=== PATIENT | female | born 2000 | race Caucasian/White ===

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

== ENCOUNTER 2019-02-14 20:11 | Emergency (ER) | payer BC, OTHER ==
[~2019-02-14] VITALS: Ht 154.9 cm; Wt 81.7 kg
[2019-02-14] MEDS ORDERED: NORETHIND-ETH1 EACH PO (20:26)
[2019-02-14 22:08] LABS: Influenza A Negative (NEGATIVE); Influenza B Negative (NEGATIVE)
[2019-02-14] MEDS ORDERED: MUCUS ER1200 MG PO (22:55)
[2019-02-14] MEDS ORDERED: Chlor-Trimeton4 MG PO (22:55)
== END 2019-02-14 23:03 | disposition home or self-care (01) ==
LOC: ER 20:11
PROVIDERS: Physician Assistant
DX: R05 Cough (principal); Z88.0 Allergy status to penicillin
CPT/HCPCS: 71046; 87804; 99283-25

== ENCOUNTER → 2020-01-11 | Outpatient (CLI) | payer BC, OTHER ==
[~2020-01-11] MED LIST: CEPH500 PO; Chlor-Trimeton4 MG PO; EFFEXOR XR37.5 MG PO; IBUP800 PO; MUCUS ER1200 MG PO; NORETHIND-ETH1 EACH PO; Zofran4 MG PO
== END | disposition home or self-care (01) ==
LOC: LAB SHORT 08:40 → PLD 08:40
DX: D22.5 Melanocytic nevi of trunk (principal); D22.72 Melanocytic nevi of left lower limb, including hip
CPT/HCPCS: 88305

== ENCOUNTER 2020-01-13 08:49 | Emergency (ER) | payer BC, OTHER ==
[~2020-01-13] VITALS: Ht 154.9 cm; Wt 96.6 kg
[~2020-01-13 08:49] MED LIST changes: -CEPH500 PO; -EFFEXOR XR37.5 MG PO; -IBUP800 PO; -Zofran4 MG PO
[2020-01-13] MEDS ORDERED: EFFEXOR XR37.5 MG PO (09:07)
[2020-01-13] MEDS ORDERED: CEPH500 PO (09:57)
[2020-01-13] MEDS ORDERED: IBUP800 PO (10:00)
[2020-01-13] MEDS ORDERED: Zofran4 MG PO (10:12)
== END 2020-01-13 10:20 | disposition home or self-care (01) ==
LOC: ER 08:49
DX: L05.01 Pilonidal cyst with abscess (principal)
CPT/HCPCS: 10081; 87070; 87075; 87076; 87185; 87205; 99283-25

== ENCOUNTER 2020-02-05 03:10 | Emergency (ER) | payer BC, OTHER ==
[~2020-02-05] VITALS: Ht 154.9 cm; Wt 95.7 kg
[~2020-02-05 03:10] MED LIST changes: +CEPH500 PO; +EFFEXOR XR37.5 MG PO; +IBUP800 PO; +Zofran4 MG PO
[2020-02-05] MEDS ORDERED: Cleocin HCl300 MG PO (03:40)
[2020-02-05] MEDS ORDERED: ONDA4ODT MM (03:50)
== END 2020-02-05 04:10 | disposition home or self-care (01) ==
LOC: ER 03:10
DX: L03.317 Cellulitis of buttock (principal); Z88.0 Allergy status to penicillin; Z79.899 Other long term (current) drug therapy
CPT/HCPCS: 99283

== ENCOUNTER 2020-07-06 08:11 | Day surgery (SDC) | payer BC, OTHER ==
[~2020-07-06] VITALS: Ht 154.9 cm; Wt 101.4 kg
[~2020-07-06 08:11] MED LIST changes: +ALBU90OI INH; +Cleocin HCl300 MG PO; +DEPO-PROVE150 MG/1 M IM; +ONDA4 PO; +ONDA4ODT MM; +OXYB5 PO; +VITAMIN D310 MC4 PO
--- NOTE | 2020-07-06 12:18 | NUR ---
RECIEVED PATIENT FROM PACU VSS PATIENT TALKATIVE WITH RN. VSS
--- NOTE | 2020-07-06 13:43 | NUR ---
Patient up to Ambulate independently. Gait steady. Discharge instructions reviewed with patient. Patient verbalizes understanding. Copy given to patient to take home. MOTHER BROUGHT INTO DAY SURGERY AND INVOLVED IN IN DISCHARGE, INSTRUCTED ON [place] DRAIN. WRITTEN INSTRUCTIONS GIVEN. Discharged via wheelchair to private car for ride home WITH MOTHER
== END 2020-07-06 22:37 | disposition home or self-care (01) ==
LOC: ORSCMMR 08:11 → ORD 08:30 → ORSCMMR 08:30
DX: L05.01 Pilonidal cyst with abscess (principal); R62.50 Unspecified lack of expected normal physiological development in childhood; F32.9 Major depressive disorder, single episode, unspecified; J45.909 Unspecified asthma, uncomplicated; E66.01 Morbid (severe) obesity due to excess calories; Z68.54 Body mass index [BMI] pediatric, 95th percentile for age to less than 120% of the 95th percentile for age; Z79.899 Other long term (current) drug therapy
CPT/HCPCS: 84703; 88305; A9270; J0690; J1100; J1885; J2270; J2405; J2550; J2704; J3010; J7120

== ENCOUNTER 2020-07-15 20:45 | Emergency (ER) | payer BC, OTHER ==
[~2020-07-15] VITALS: Ht 154.9 cm; Wt 99.8 kg
== END 2020-07-16 02:47 | disposition home or self-care (01) ==
LOC: ER 20:45
DX: T81.31XA Disruption of external operation (surgical) wound, not elsewhere classified, initial encounter (principal); Z88.0 Allergy status to penicillin; Z91.09 Other allergy status, other than to drugs and biological substances
CPT/HCPCS: 99282-25

== ENCOUNTER 2020-07-23 00:17 | Day surgery (SDC) | payer BC, OTHER | END 2020-07-23 23:23 | disposition home or self-care (01) | LOC: WOUND 00:17 | DX: T81.31XA Disruption of external operation (surgical) wound, not elsewhere classified, initial encounter (principal) | CPT/HCPCS: A9270; G0463 ==

== ENCOUNTER 2020-08-01 04:32 | Day surgery (SDC) | payer BC, OTHER | END 2020-08-01 23:08 | disposition home or self-care (01) | LOC: WOUND 04:32 | DX: T81.30XD Disruption of wound, unspecified, subsequent encounter (principal); X58.XXXD Exposure to other specified factors, subsequent encounter | CPT/HCPCS: A9270 ==

== ENCOUNTER 2020-08-08 02:51 | Day surgery (SDC) | payer BC, OTHER | END 2020-08-08 23:39 | disposition home or self-care (01) | LOC: WOUND 02:51 | DX: T81.31XA Disruption of external operation (surgical) wound, not elsewhere classified, initial encounter (principal); Z88.0 Allergy status to penicillin | CPT/HCPCS: A9270 ==

== ENCOUNTER 2020-08-15 01:21 | Day surgery (SDC) | payer BC, OTHER | END 2020-08-15 23:52 | disposition home or self-care (01) | LOC: WOUND 01:21 | DX: T81.30XD Disruption of wound, unspecified, subsequent encounter (principal); Z88.0 Allergy status to penicillin | CPT/HCPCS: A9270 ==

== ENCOUNTER 2020-08-29 02:13 | Day surgery (SDC) | payer BC, OTHER | END 2020-08-29 23:33 | disposition home or self-care (01) | LOC: WOUND 02:13 | DX: T81.31XA Disruption of external operation (surgical) wound, not elsewhere classified, initial encounter (principal); Z88.0 Allergy status to penicillin | CPT/HCPCS: A9270 ==

== ENCOUNTER 2020-09-12 01:33 | Day surgery (SDC) | payer BC, OTHER | END 2020-09-12 23:15 | disposition home or self-care (01) | LOC: WOUND 01:33 | DX: T81.31XD Disruption of external operation (surgical) wound, not elsewhere classified, subsequent encounter (principal) | CPT/HCPCS: A9270; G0463 ==

== ENCOUNTER 2020-10-03 00:35 | Day surgery (SDC) | payer BC, OTHER | END 2020-10-03 23:23 | disposition home or self-care (01) | LOC: WOUND 00:35 | DX: T81.30XD Disruption of wound, unspecified, subsequent encounter (principal) | CPT/HCPCS: G0463 ==

== ENCOUNTER 2020-10-17 02:29 | Day surgery (SDC) | payer BC, OTHER | END 2020-10-17 23:52 | disposition home or self-care (01) | LOC: WOUND 02:29 | DX: T81.31XD Disruption of external operation (surgical) wound, not elsewhere classified, subsequent encounter (principal); Z88.0 Allergy status to penicillin | CPT/HCPCS: G0463 ==

== ENCOUNTER 2020-11-20 01:34 | Day surgery (SDC) | payer BC, OTHER | END 2020-11-20 23:05 | disposition home or self-care (01) | LOC: WOUND 01:34 | DX: T81.30XD Disruption of wound, unspecified, subsequent encounter (principal); Z88.0 Allergy status to penicillin | CPT/HCPCS: G0463 ==

== ENCOUNTER → 2021-01-06 | Outpatient (CLI) | payer BC, OTHER ==
[2021-01-06 14:40] LABS: BASOPHILS ABSOLUTE AUTO 0.05 K/mm3 (0.00-0.23); BASOPHILS PERCENT AUTO 1 % (0-2); EOSINOPHILS ABSOLUTE AUTO 0.07 K/mm3 (0.00-0.68); EOSINOPHILS PERCENT AUTO 1 % (0-6); Hematocrit 42.3 % (33.0-51.0); Hemoglobin 13.6 g/dL (11.5-16.0); IMMATURE GRAN ABSOLUTE AUTO 0.03 K/mm3 (0.00-0.10); IMMATURE GRAN PERCENT AUTO 0 % (0-1); LYMPHOCYTES PERCENT AUTO 27 % (21-46); MONOCYTES ABSOLUTE AUTO 0.64 K/mm3 (0.16-1.47); MONOCYTES PERCENT AUTO 6 % (4-13); Mean Corpuscular HGB 25.7 pg (26.0-34.0); Mean Corpuscular HGB Conc 32.2 g/dL (31.5-36.5); Mean Corpuscular Volume 80 fL (80-100); Mean Platelet Volume 10.1 fL (9.1-12.4); NEUTROPHILS ABSOLUTE AUTO 6.99 K/mm3 (1.96-9.15); NEUTROPHILS PERCENT AUTO 66 % (41-73); Platelet Count 370 K/mm3 (150-400); RDW Coefficient Variation 15.8 % (11.7-14.2); RDW Standard Deviation 45.2 fL (35.1-46.3); Red Blood Cell Count 5.29 M/mm3 (3.80-5.20); White Blood Cell Count 10.58 K/mm3 (4.00-11.30)
[2021-01-06 14:50] LABS: Alanine Aminotransfer (ALT/SGP 17 U/L (12-78); Albumin, Blood 4.2 g/dL (3.4-5.0); Albumin/Globulin Ratio 1.1 (0.8-1.8); Alk Phos 145 U/L (40-126); Amylase, Blood 29 U/L (25-115); Anion Gap 15 mmol/L (6-16); Aspartate Aminotrans (AST/SGOT 13 U/L (12-37); Bilirubin, Total 0.3 mg/dL (0.1-1.0); Blood Urea Nitrogen 10 mg/dL (8-24); CO2, Blood 24 mmol/L (21-32); Calcium, Blood 9.4 mg/dL (8.5-10.1); Chloride, Blood 101 mmol/L (98-108); Creatinine, Blood 0.83 mg/dL (0.40-1.00); Globulin, Blood 3.7 g/dL (2.2-4.0); Glomerular Filtration Rate >60 (60-); Glucose, Blood 83 mg/dL (70-99); Potassium, Blood 3.5 mmol/L (3.5-5.5); Sodium, Blood 140 mmol/L (136-145); Total Protein, Blood 7.9 g/dL (6.4-8.2)
== END | disposition home or self-care (01) ==
LOC: LAB SHORT 14:31 → LAB 14:31
PROVIDERS: Physician Assistant Surgical
DX: R10.11 Right upper quadrant pain (principal)
CPT/HCPCS: 80053; 82150; 83690; 85025

== ENCOUNTER 2021-01-28 21:56 | Emergency (ER) | payer BC, OTHER ==
[~2021-01-28] VITALS: Ht 154.9 cm; Wt 95.7 kg
[2021-01-28] MEDS ORDERED: OMEP20ER PO (22:47)
[2021-01-28] MEDS ORDERED: DULCOLAX400 MG/5 M PO (22:48)
== END 2021-01-28 23:41 | disposition home or self-care (01) ==
LOC: ER 21:56
DX: R13.10 Dysphagia, unspecified (principal); R07.0 Pain in throat; Z88.1 Allergy status to other antibiotic agents; Z91.048 Other nonmedicinal substance allergy status; Z88.8 Allergy status to other drugs, medicaments and biological substances
CPT/HCPCS: 99283

== ENCOUNTER 2021-05-10 22:35 | Emergency (ER) | payer BC, OTHER ==
[~2021-05-10] VITALS: Ht 154.9 cm; Wt 77.1 kg
[~2021-05-10 22:35] MED LIST changes: +DULCOLAX400 MG/5 M PO; +OMEP20ER PO
[2021-05-10 23:49] LABS: BASOPHILS ABSOLUTE AUTO 0.04 K/mm3 (0.00-0.23); BASOPHILS PERCENT AUTO 0 % (0-2); EOSINOPHILS ABSOLUTE AUTO 0.08 K/mm3 (0.00-0.68); EOSINOPHILS PERCENT AUTO 1 % (0-6); Hematocrit 39.9 % (33.0-51.0); Hemoglobin 12.8 g/dL (11.5-16.0); IMMATURE GRAN ABSOLUTE AUTO 0.02 K/mm3 (0.00-0.10); IMMATURE GRAN PERCENT AUTO 0 % (0-1); LYMPHOCYTES ABSOLUTE AUTO 2.61 K/mm3 (0.84-5.20); LYMPHOCYTES PERCENT AUTO 26 % (21-46); MONOCYTES PERCENT AUTO 8 % (4-13); Mean Corpuscular HGB 27.4 pg (26.0-34.0); Mean Corpuscular HGB Conc 32.1 g/dL (31.5-36.5); Mean Corpuscular Volume 85 fL (80-100); NEUTROPHILS ABSOLUTE AUTO 6.48 K/mm3 (1.96-9.15); NEUTROPHILS PERCENT AUTO 65 % (41-73); Platelet Count 293 K/mm3 (150-400); RDW Coefficient Variation 15.4 % (11.7-14.2); RDW Standard Deviation 48.6 fL (35.1-46.3); Red Blood Cell Count 4.68 M/mm3 (3.80-5.20); White Blood Cell Count 10.03 K/mm3 (4.00-11.30)
[2021-05-11 00:08] LABS: Alanine Aminotransfer (ALT/SGP 9 U/L (12-78); Albumin, Blood 3.8 g/dL (3.4-5.0); Albumin/Globulin Ratio 1.1 (0.8-1.8); Alk Phos 109 U/L (50-136); Anion Gap 11 mmol/L (6-16); Aspartate Aminotrans (AST/SGOT 9 U/L (12-37); Bilirubin, Total 0.5 mg/dL (0.1-1.0); Blood Urea Nitrogen 10 mg/dL (8-24); Bun/Creatinine Ratio 12.8 (12.0-20.0); CO2, Blood 24 mmol/L (21-32); Calcium, Blood 9.4 mg/dL (8.5-10.1); Chloride, Blood 106 mmol/L (98-108); Creatinine, Blood 0.78 mg/dL (0.40-1.00); Globulin, Blood 3.6 g/dL (2.2-4.0); Glomerular Filtration Rate >60 (60-); Glucose, Blood 77 mg/dL (70-99); Potassium, Blood 3.4 mmol/L (3.5-5.5); Sodium, Blood 141 mmol/L (136-145); Total Protein, Blood 7.4 g/dL (6.4-8.2)
== END 2021-05-11 00:51 | disposition home or self-care (01) ==
LOC: ER 22:35
PROVIDERS: Physician Assistant
DX: R10.11 Right upper quadrant pain (principal); R11.2 Nausea with vomiting, unspecified; Z91.048 Other nonmedicinal substance allergy status; Z88.1 Allergy status to other antibiotic agents; Z88.8 Allergy status to other drugs, medicaments and biological substances; Z79.899 Other long term (current) drug therapy
CPT/HCPCS: 36415; 76705; 80053; 83690; 85025; 99284-25; A9270; J1885; J2405; J7030

== ENCOUNTER 2021-05-22 11:49 | Emergency (ER) | payer BC, OTHER ==
[~2021-05-22] VITALS: Ht 154.9 cm; Wt 72.1 kg
[2021-05-22 13:19] LABS: BASOPHILS ABSOLUTE AUTO 0.05 K/mm3 (0.00-0.23); BASOPHILS PERCENT AUTO 1 % (0-2); EOSINOPHILS ABSOLUTE AUTO 0.02 K/mm3 (0.00-0.68); EOSINOPHILS PERCENT AUTO 0 % (0-6); Hematocrit 46.2 % (33.0-51.0); Hemoglobin 15.7 g/dL (11.5-16.0); IMMATURE GRAN ABSOLUTE AUTO 0.02 K/mm3 (0.00-0.10); IMMATURE GRAN PERCENT AUTO 0 % (0-1); LYMPHOCYTES PERCENT AUTO 16 % (21-46); MONOCYTES ABSOLUTE AUTO 0.77 K/mm3 (0.16-1.47); MONOCYTES PERCENT AUTO 9 % (4-13); Mean Corpuscular HGB 27.8 pg (26.0-34.0); Mean Corpuscular Volume 82 fL (80-100); Mean Platelet Volume 12.7 fL (9.1-12.4); NEUTROPHILS ABSOLUTE AUTO 6.62 K/mm3 (1.96-9.15); NEUTROPHILS PERCENT AUTO 75 % (41-73); Platelet Count 279 K/mm3 (150-400); RDW Coefficient Variation 14.6 % (11.7-14.2); RDW Standard Deviation 43.8 fL (35.1-46.3); Red Blood Cell Count 5.65 M/mm3 (3.80-5.20); White Blood Cell Count 8.88 K/mm3 (4.00-11.30)
[2021-05-22 13:35] LABS: Source, Urine Clean Catch
[2021-05-22 13:44] LABS: Appearance, Urine Turbid (Clear); Blood, Urine 1+ (Neg); Color, Urine Amber (P-Yellow); Glucose Qualitative, Urine Neg (Neg); Ketones, Urine 3+ (Neg); Leukocyte Esterase, Urine Neg (Neg); Nitrite, Urine Neg (Neg); Protein, Urine 2+ (Neg); Urobilinogen, Urine 1+ (Normal)
[2021-05-22 13:45] LABS: Alanine Aminotransfer (ALT/SGP 14 U/L (12-78); Albumin, Blood 4.2 g/dL (3.4-5.0); Alk Phos 101 U/L (50-136); Anion Gap 11 mmol/L (6-16); Aspartate Aminotrans (AST/SGOT 20 U/L (12-37); Bilirubin, Total 0.7 mg/dL (0.1-1.0); Blood Urea Nitrogen 8 mg/dL (8-24); Bun/Creatinine Ratio 10.7 (12.0-20.0); CO2, Blood 24 mmol/L (21-32); Calcium, Blood 9.8 mg/dL (8.5-10.1); Chloride, Blood 100 mmol/L (98-108); Creatinine, Blood 0.75 mg/dL (0.40-1.00); Globulin, Blood 4.3 g/dL (2.2-4.0); Glomerular Filtration Rate >60 (60-); Glucose, Blood 100 mg/dL (70-99); Potassium, Blood 3.3 mmol/L (3.5-5.5); Sodium, Blood 135 mmol/L (136-145); Total Protein, Blood 8.5 g/dL (6.4-8.2)
[2021-05-22 13:52] LABS: Bilirubin, Urine 1+ (Neg)
[2021-05-22 14:08] LABS: Other Crystals Many /hpf
[2021-05-22 14:10] LABS: Bacteria Not Seen /hpf; Mucus Heavy (0-Heavy); Red Blood Cells, Urine Not Seen /hpf (0-2); Squamous Epithelial Cells Rare /hpf (Few); Transitional Epithelial Cells Rare /hpf (0-Rare); White Blood Cells, Urine Not Seen /hpf (0-5)
[2021-05-22 14:11] LABS: Hyaline Casts 0-2 /lpf (0-2)
[2021-05-22] MEDS ORDERED: PROM12.5S PR (17:30)
== END 2021-05-22 18:45 | disposition home or self-care (01) ==
LOC: ER 11:49
PROVIDERS: Physician Assistant
DX: K80.20 Calculus of gallbladder without cholecystitis without obstruction (principal); E86.0 Dehydration; Z88.0 Allergy status to penicillin; Z88.8 Allergy status to other drugs, medicaments and biological substances; Z91.048 Other nonmedicinal substance allergy status; Z79.899 Other long term (current) drug therapy
CPT/HCPCS: 36415; 80053; 81001; 81025; 83690; 85025; 96374; 99283-25; J2405; J7030

== ENCOUNTER 2022-02-25 16:14 | Observation (INO) | payer BC, OTHER ==
[~2022-02-25] VITALS: Ht 154.9 cm; Wt 93.4 kg
[~2022-02-25 16:14] MED LIST changes: +PROM12.5S PR
[2022-02-25 17:00] LABS: Source, Urine Clean Catch
[2022-02-25 17:14] LABS: Bilirubin, Urine Neg (Neg); Blood, Urine 2+ (Neg); Glucose Qualitative, Urine Neg (Neg); Ketones, Urine Neg (Neg); Leukocyte Esterase, Urine Neg (Neg); Nitrite, Urine Neg (Neg); Protein, Urine Neg (Neg); Specific Gravity, Urine 1.015 (1.003-1.022); Urobilinogen, Urine NORM (Normal); pH, Urine 6.5 (5.0-8.0)
[2022-02-25 17:15] LABS: BASOPHILS ABSOLUTE AUTO 0.08 K/mm3 (0.00-0.23); BASOPHILS PERCENT AUTO 1 % (0-2); EOSINOPHILS PERCENT AUTO 2 % (0-6); Hematocrit 45.7 % (33.0-51.0); Hemoglobin 14.8 g/dL (11.5-16.0); IMMATURE GRAN ABSOLUTE AUTO 0.04 K/mm3 (0.00-0.10); IMMATURE GRAN PERCENT AUTO 0 % (0-1); LYMPHOCYTES ABSOLUTE AUTO 3.18 K/mm3 (0.84-5.20); LYMPHOCYTES PERCENT AUTO 27 % (21-46); MONOCYTES ABSOLUTE AUTO 0.81 K/mm3 (0.16-1.47); MONOCYTES PERCENT AUTO 7 % (4-13); Mean Corpuscular HGB 27.5 pg (26.0-34.0); Mean Corpuscular HGB Conc 32.4 g/dL (31.5-36.5); Mean Corpuscular Volume 85 fL (80-100); Mean Platelet Volume 9.7 fL (9.1-12.4); NEUTROPHILS ABSOLUTE AUTO 7.45 K/mm3 (1.96-9.15); NEUTROPHILS PERCENT AUTO 63 % (41-73); Platelet Count 378 K/mm3 (150-400); RDW Coefficient Variation 14.1 % (11.7-14.2); RDW Standard Deviation 43.6 fL (35.1-46.3); Red Blood Cell Count 5.39 M/mm3 (3.80-5.20); White Blood Cell Count 11.76 K/mm3 (4.00-11.30)
[2022-02-25 17:28] LABS: Appearance, Urine Hazy (Clear); Color, Urine Yellow (P-Yellow)
[2022-02-25 17:29] LABS: Bacteria Many /hpf; Mucus Light (0-Heavy); Squamous Epithelial Cells Mod /hpf (Few)
[2022-02-25 17:35] LABS: U Amphetamine Screen Not Detected; U Barbituate Screen Not Detected; U Benzodiazapine Screen DETECTED; U Buprenorphine Screen Not Detected; U Cannabinoids Screen Not Detected; U Cocaine Screen Not Detected; U Methadone Screen Not Detected; U Methamphetamine Screen Not Detected; U Opiates Screen Not Detected; U Oxycodone Screen Not Detected; U Phencyclidine Screen Not Detected; U Propoxyphene Screen Not Detected
[2022-02-25 17:38] LABS: Ethanol (Alcohol), Blood, Med <3 mg/dL; Salicylate <1.7 mg/dL (2.8-20.0); Thyroxine (T4) 8.5 ug/dL (4.8-13.9)
[2022-02-25 17:43] LABS: Influenza A, PCR NEGATIVE (NEGATIVE); Influenza B, PCR NEGATIVE (NEGATIVE); Resp Syncytial Virus, PCR NEGATIVE (NEGATIVE); SARS-Cov-2 (COVID-19) PCR, MMC NEGATIVE (NEGATIVE)
[2022-02-25 17:55] LABS: Acetaminophen, Random <2.0 ug/mL (10.0-30.0); Alanine Aminotransfer (ALT/SGP 17 U/L (12-78); Albumin, Blood 3.8 g/dL (3.4-5.0); Albumin/Globulin Ratio 0.9 (0.8-1.8); Alk Phos 145 U/L (50-136); Anion Gap 7 mmol/L (6-16); Aspartate Aminotrans (AST/SGOT 16 U/L (12-37); Bilirubin, Total 0.2 mg/dL (0.1-1.0); Blood Urea Nitrogen 9 mg/dL (8-24); Bun/Creatinine Ratio 14.2 (12.0-20.0); CO2, Blood 28 mmol/L (21-32); Calcium, Blood 9.3 mg/dL (8.5-10.1); Chloride, Blood 105 mmol/L (98-108); Creatinine, Blood 0.63 mg/dL (0.40-1.00); Globulin, Blood 4.4 g/dL (2.2-4.0); Glomerular Filtration Rate 129 (60-); Glucose, Blood 107 mg/dL (70-99); Potassium, Blood 3.3 mmol/L (3.5-5.5); Sodium, Blood 140 mmol/L (136-145); Total Protein, Blood 8.2 g/dL (6.4-8.2)
[2022-02-25] MEDS ORDERED: FAMO20 PO (21:02)
== END 2022-02-27 12:00 ==
LOC: ER 16:14 → EOR 16:15
PROVIDERS: Student in an Organized Health Care Education/Training Program; ADMIT Emergency Medicine
DX: F33.3 Major depressive disorder, recurrent, severe with psychotic symptoms (principal); Z20.822 Contact with and (suspected) exposure to COVID-19; Z72.0 Tobacco use
CPT/HCPCS: 0241U; 80053; 81001; 81025; 84436; 84443; 85025; 86592; 87077; 87086; 87186; 99285; A9270; G0378; G0480; Q3014

== ENCOUNTER → 2022-03-19 | Outpatient (CLI) | payer BC, OTHER ==
[~2022-03-19] MED LIST changes: +FAMO20 PO
[2022-03-25 12:10] LABS: HPV APTIMA Negative (Negative)
== END | disposition home or self-care (01) ==
LOC: LAB 15:45 → LAB SHORT 15:45
PROVIDERS: Obstetrics & Gynecology
DX: Z12.4 Encounter for screening for malignant neoplasm of cervix (principal)
CPT/HCPCS: G0145

== ENCOUNTER → 2022-04-01 | Outpatient (CLI) | payer BC, OTHER | LOC: LAB 15:10 → LAB SHORT 15:10 | DX: L08.0 Pyoderma (principal); L98.9 Disorder of the skin and subcutaneous tissue, unspecified | CPT/HCPCS: 87070; 87205 ==

== ENCOUNTER 2022-04-25 09:52 | Emergency (ER) | payer BC, OTHER ==
[~2022-04-25] VITALS: Ht 154.9 cm; Wt 99.8 kg
[2022-04-25] MEDS ORDERED: CEFD300 PO (10:05)
== END 2022-04-25 10:05 | disposition home or self-care (01) ==
LOC: ER 09:52
DX: H66.91 Otitis media, unspecified, right ear (principal); Z88.0 Allergy status to penicillin; Z88.8 Allergy status to other drugs, medicaments and biological substances; Z91.09 Other allergy status, other than to drugs and biological substances; Z79.899 Other long term (current) drug therapy
CPT/HCPCS: 99282

== ENCOUNTER 2022-05-30 14:39 | Emergency (ER) | payer BC, OTHER ==
[~2022-05-30] VITALS: Ht 175.3 cm; Wt 65.8 kg
[~2022-05-30 14:39] MED LIST changes: +CEFD300 PO
[2022-05-30 17:22] VITALS: BP 109/44
[2022-05-30] MEDS ORDERED: ZOLOFT50 MG PO (17:24)
[2022-05-30] MEDS ORDERED: Hydroxyzine HCl25 MG PO (18:05)
== END 2022-05-30 18:32 | disposition home or self-care (01) ==
LOC: ER 14:39
DX: R41.82 Altered mental status, unspecified (principal); F41.9 Anxiety disorder, unspecified; Z91.048 Other nonmedicinal substance allergy status; Z88.8 Allergy status to other drugs, medicaments and biological substances; Z88.1 Allergy status to other antibiotic agents
CPT/HCPCS: 99283

== ENCOUNTER 2022-09-27 22:23 | Emergency (ER) | payer BC, OTHER ==
[~2022-09-27] VITALS: Ht 154.9 cm; Wt 54.4 kg
[~2022-09-27 22:23] MED LIST changes: +Hydroxyzine HCl25 MG PO; +ZOLOFT50 MG PO
[2022-09-27 23:41] LABS: BASOPHILS ABSOLUTE AUTO 0.05 K/mm3 (0.00-0.23); BASOPHILS PERCENT AUTO 1 % (0-2); EOSINOPHILS ABSOLUTE AUTO 0.22 K/mm3 (0.00-0.68); EOSINOPHILS PERCENT AUTO 2 % (0-6); Hematocrit 43.3 % (33.0-51.0); Hemoglobin 13.5 g/dL (11.5-16.0); IMMATURE GRAN ABSOLUTE AUTO 0.02 K/mm3 (0.00-0.10); IMMATURE GRAN PERCENT AUTO 0 % (0-1); LYMPHOCYTES ABSOLUTE AUTO 3.67 K/mm3 (0.84-5.20); LYMPHOCYTES PERCENT AUTO 36 % (21-46); MONOCYTES ABSOLUTE AUTO 0.83 K/mm3 (0.16-1.47); MONOCYTES PERCENT AUTO 8 % (4-13); Mean Corpuscular HGB 26.7 pg (26.0-34.0); Mean Corpuscular HGB Conc 31.2 g/dL (31.5-36.5); Mean Corpuscular Volume 86 fL (80-100); Mean Platelet Volume 10.2 fL (9.1-12.4); NEUTROPHILS ABSOLUTE AUTO 5.33 K/mm3 (1.96-9.15); NEUTROPHILS PERCENT AUTO 53 % (41-73); Platelet Count 352 K/mm3 (150-400); RDW Coefficient Variation 14.1 % (11.7-14.2); Red Blood Cell Count 5.05 M/mm3 (3.80-5.20); White Blood Cell Count 10.12 K/mm3 (4.00-11.30)
[2022-09-28] VITALS: BP 106/69
[2022-09-28 00:05] LABS: Albumin, Blood 3.6 g/dL (3.4-5.0); Albumin/Globulin Ratio 0.9 (0.8-1.8); Bilirubin, Total 0.1 mg/dL (0.1-1.0); Bun/Creatinine Ratio 9.2 (12.0-20.0); Calcium, Blood 8.7 mg/dL (8.5-10.1); Creatinine, Blood 0.76 mg/dL (0.40-1.00); Globulin, Blood 4.1 g/dL (2.2-4.0); Potassium, Blood 3.6 mmol/L (3.5-5.5); Total Protein, Blood 7.7 g/dL (6.4-8.2)
[2022-09-28] MEDS ORDERED: Cleocin HCl150 MG PO (00:20)
[2022-09-28 00:31] LABS: Influenza A, PCR NEGATIVE (NEGATIVE); Influenza B, PCR NEGATIVE (NEGATIVE); Resp Syncytial Virus, PCR NEGATIVE (NEGATIVE); SARS-Cov-2 (COVID-19) PCR, MMC NEGATIVE (NEGATIVE)
[2022-09-29] MEDS ORDERED: CLIN150 PO (10:38)
== END 2022-09-28 01:34 | disposition home or self-care (01) ==
LOC: ER 22:23
PROVIDERS: Student in an Organized Health Care Education/Training Program
DX: R11.0 Nausea (principal); T36.8X5A Adverse effect of other systemic antibiotics, initial encounter; B95.8 Unspecified staphylococcus as the cause of diseases classified elsewhere; Z88.0 Allergy status to penicillin; Z91.048 Other nonmedicinal substance allergy status; Z79.899 Other long term (current) drug therapy; F43.10 Post-traumatic stress disorder, unspecified; F17.290 Nicotine dependence, other tobacco product, uncomplicated
CPT/HCPCS: 0241U; 80053; 85025; 96360; 99283-25; A9270; J7030

== ENCOUNTER → 2022-11-26 | Outpatient (CLI) | payer BC, OTHER ==
[~2022-11-26] MED LIST changes: +CLIN150 PO; +Cleocin HCl150 MG PO
== END | disposition home or self-care (01) ==
LOC: LAB SHORT 13:01 → LAB 13:01
DX: L98.9 Disorder of the skin and subcutaneous tissue, unspecified (principal)
CPT/HCPCS: 88305; 88312

== ENCOUNTER → 2023-01-14 | Outpatient (CLI) | payer BC, OTHER | END | disposition home or self-care (01) | LOC: LAB SHORT 17:29 → LAB 17:29 | DX: R82.79 Other abnormal findings on microbiological examination of urine (principal) | CPT/HCPCS: 87086 ==

== ENCOUNTER → 2024-08-30 | Outpatient (CLI) | payer BC, OTHER ==
[~2024-08-30] MED LIST changes: +BRINTELLIX5 MG PO; +DOXE25 PO
== END | disposition home or self-care (01) ==
LOC: LAB 16:19 → LAB SHORT 16:19
DX: L08.0 Pyoderma (principal)
CPT/HCPCS: 87070; 87205

== ENCOUNTER → 2024-10-18 | Outpatient (CLI) | payer BC, OTHER ==
[2024-10-18 16:27] LABS: BASOPHILS ABSOLUTE AUTO 0.05 K/mm3 (0.00-0.23); BASOPHILS PERCENT AUTO 1 % (0-2); EOSINOPHILS ABSOLUTE AUTO 0.23 K/mm3 (0.00-0.68); EOSINOPHILS PERCENT AUTO 3 % (0-6); Hematocrit 39.6 % (33.0-51.0); Hemoglobin 12.8 g/dL (11.5-16.0); IMMATURE GRAN ABSOLUTE AUTO 0.02 K/mm3 (0.00-0.10); IMMATURE GRAN PERCENT AUTO 0 % (0-1); LYMPHOCYTES ABSOLUTE AUTO 3.42 K/mm3 (0.84-5.20); LYMPHOCYTES PERCENT AUTO 38 % (21-46); MONOCYTES ABSOLUTE AUTO 0.55 K/mm3 (0.16-1.47); MONOCYTES PERCENT AUTO 6 % (4-13); Mean Corpuscular HGB Conc 32.3 g/dL (31.5-36.5); Mean Corpuscular Volume 84 fL (80-100); NEUTROPHILS ABSOLUTE AUTO 4.72 K/mm3 (1.96-9.15); NEUTROPHILS PERCENT AUTO 53 % (41-73); NRBC ABSOLUTE 0.00 K/mm3 (0.00-0.02); NRBC Auto 0.0 /100 WBC (0.0-0.2); Platelet Count 333 K/mm3 (150-400); RDW Coefficient Variation 15.7 % (11.7-14.2); RDW Standard Deviation 47.8 fL (35.1-46.3)
[2024-10-18 16:37] LABS: Alanine Aminotransfer (ALT/SGP 15.0 U/L (12-78); Albumin, Blood 3.8 g/dL (3.4-5.0); Albumin/Globulin Ratio 1.0 (0.8-1.8); Anion Gap 17.0 mmol/L (3-11); Aspartate Aminotrans (AST/SGOT 16.0 U/L (12-37); Bilirubin, Total 0.5 mg/dL (0.1-1.0); Blood Urea Nitrogen 9.0 mg/dL (8-24); CO2, Blood 25.0 mmol/L (21-32); Calcium, Blood 8.8 mg/dL (8.5-10.1); Chloride, Blood 100.0 mmol/L (98-108); Creatinine, Blood 0.61 mg/dL (0.40-1.00); Globulin, Blood 3.9 g/dL (2.2-4.0); Glucose, Blood 81.0 mg/dL (70-99); Potassium, Blood 3.5 mmol/L (3.5-5.5); Sodium, Blood 138.0 mmol/L (136-145); Total Protein, Blood 7.7 g/dL (6.4-8.2)
== END ==
LOC: LAB 16:21 → LAB SHORT 16:21
PROVIDERS: Physician Assistant
DX: R10.84 Generalized abdominal pain (principal)
CPT/HCPCS: 80053; 83690; 85025